=== PATIENT | female | born 1970 | race Caucasian/White ===

== ENCOUNTER 2020-06-14 01:03 | Emergency (ER) | payer MEDICAID, OTHER, SELFPAY ==
[~2020-06-14] VITALS: Ht 175.3 cm; Wt 82.0 kg
[2020-06-14] MEDS ORDERED: KETOROLAC 30 MG/1 ML ONE (01:50)
[2020-06-14 01:55] LABS: MICROSCOPIC AUTO
--- NOTE | 2020-06-14 01:57 | NUR ---
pt on gurney, restless, shifting, but pleasant and cooperative able to provide ua for lab. medicated for 10/10 low back pain. no signs or symptoms of acute distress noted respirations even and unlabored
[2020-06-14 02:00] VITALS: BP 158/83
[2020-06-14] MEDS ORDERED: KETOROLAC 30 MG/1 ML IVPush ONE (02:00)
--- NOTE | 2020-06-14 02:00 | NUR ---
REPORT FROM SANDRA BUSCH. PT SITTING UP IN JOSUE BROCK NOTED. LAB AT BEDSIDE. PT DENIES NEED FOR PAIN MEDICATIONS
[2020-06-14 02:21] LABS: BASOPHILS % (AUTO) 1 % (0-1); EOSINOPHILS % (AUTO) 5 % (1-7); LYMPHOCYTES % (AUTO) 32 % (22-44); MEAN CORPUSCULAR HEMOGLOBIN 30.6 pg (27.0-34.8); MEAN CORPUSCULAR HGB CONC 34.6 g/dL (32.4-35.8); MONOCYTES % (AUTO) 9 % (2-9); NEUTROPHILS % (AUTO) 53 % (42-75); PLATELET COUNT 264 x10^3/uL (130-400); RED BLOOD COUNT 4.18 x10^6/uL (3.82-5.3)
[2020-06-14 02:25] LABS: MD NO
[2020-06-14 02:30] LABS: ALBUMIN 3.9 g/dL (3.4-5.0); ANION GAP 6 mmol/L (5-15); CALCIUM 8.8 mg/dL (8.5-10.1); CHLORIDE 107 mmol/L (98-107)
[2020-06-14 02:36] LABS: ALANINE AMINOTRANSFERASE 33 U/L (12-78); ALKALINE PHOSPHATASE 48 U/L (45-117); CREATININE 0.95 mg/dL (0.55-1.02); TOTAL PROTEIN 7.1 g/dL (6.4-8.2)
--- NOTE | 2020-06-14 03:09 | NUR ---
REPORT TO SANDRA OLIVO
--- NOTE | 2020-06-14 03:24 | NUR ---
REPORT FROM ADRIANA ASSUMED CARE OF PT AT THIS TIME
--- NOTE | 2020-06-14 04:45 | NUR ---
Patient/Caregiver given discharge instructions and they have confirmed that they understand the instructions. Patient ambulatory with steady gait.
== END 2020-06-14 04:47 | disposition home or self-care (01) ==
LOC: ED 03:08
DX: R31.29 Other microscopic hematuria (principal); R10.9 Unspecified abdominal pain; M54.5 Low back pain; R30.0 Dysuria; F17.210 Nicotine dependence, cigarettes, uncomplicated
CPT/HCPCS: 36415; 74176; 80053; 81001; 84703; 85025; 96374; 99284; 99406; J1885